=== PATIENT | male | born 1970 | race Caucasian/White ===

== ENCOUNTER 2017-12-07 08:28 | Emergency (ER) | payer BC ==
[~2017-12-07] VITALS: Ht 182.9 cm; Wt 102.1 kg
--- NOTE | 2017-12-07 08:28 | NUR ---
RIGHT RIB CAGE PAIN S/P FELL X LAST NIGHT, -KO. NAD NOTED. PT AAO X3, AMB WITH STEADY GAIT. RR EVN AND UNLABORED. VSS. PENDING MD CUELLAR.
[2017-12-07] MEDS ORDERED: HYDROCODONE/APAP 5/325MG 1 EACH TABLET ONE (08:55)
[2017-12-07] MEDS ORDERED: ONDANSETRON 4 MG TAB.RAPDIS ONE (08:55)
[2017-12-07] MEDS ORDERED: HYDROCODONE/APAP 5/325MG 1 EACH TABLET PO ONE (09:00)
[2017-12-07] MEDS ORDERED: ONDANSETRON 4 MG TAB.RAPDIS PO ONE (09:00)
--- NOTE | 2017-12-07 09:01 | NUR ---
XRAY IN PROGRESS AT BS
[2017-12-07 10:12] VITALS: BP 147/92
== END 2017-12-07 10:13 | disposition home or self-care (01) ==
LOC: ER 08:31
DX: S20.211A Contusion of right front wall of thorax, initial encounter (principal); E78.00 Pure hypercholesterolemia, unspecified; W01.0XXA Fall on same level from slipping, tripping and stumbling without subsequent striking against object, initial encounter; Y93.89 Activity, other specified; Y92.89 Other specified places as the place of occurrence of the external cause; Y99.8 Other external cause status
CPT/HCPCS: 71100; 99284; A4606; Q0162; Z7610